=== PATIENT | male | born 1950 ===

== ENCOUNTER 2018-05-04 21:40 | Inpatient (IN) | payer OTHER ==
[~2018-05-04] VITALS: Ht 167.6 cm; Wt 69.9 kg
[2018-05-04] MEDS ORDERED: SODIUM CHLORIDE FLUSH 10ML SYR IVF ONE (22:00)
--- NOTE | 2018-05-04 22:04 | NUR ---
SEE TRIAGE NOTE. PT REPORTS SX ONSET APPROX 2044, ALL SX SAME WITH PREVIOUS KS-NO CP. PT STATES NAUSEA AND DIZZINESS GONE AT THIS TIME. PT STILL HAS SLIGHT SOB BUT ABLE TO SPEAK FULL SENTENCES, RA SAT 100%. PT PLACED ON HEART MONITOR, BP CUFF, PULSE OX. CALL LIGHT WITHIN REACH, WARM BLANKET PROVIDED. FAMILY AT BS. REPORT TO EARL WOODALL.
[2018-05-04 22:06] LABS: BASOPHILS # (AUTO) 0.02 x10^3/uL (0-0.1); BASOPHILS % (AUTO) 0 % (0-1); EOSINOPHILS # (AUTO) 0.17 x10^3/uL (0-0.4); EOSINOPHILS % (AUTO) 2 % (1-7); LYMPHOCYTES # (AUTO) 2.63 x10^3/uL (1-3.4); LYMPHOCYTES % (AUTO) 26 % (22-44); MD NO; MEAN CORPUSCULAR HEMOGLOBIN 30.3 pg (27.5-34.5); MEAN CORPUSCULAR HGB CONC 33.9 g/dL (33.2-36.2); MEAN CORPUSCULAR VOLUME 89.3 fL (81-97); MEAN PLATELET VOLUME 8.2 fL (7.4-10.4); MONOCYTES # (AUTO) 0.78 x10^3/uL (0.2-0.8); MONOCYTES % (AUTO) 8 % (2-9); NEUTROPHILS # (AUTO) 6.56 x10^3/uL (1.8-6.8); NEUTROPHILS % (AUTO) 65 % (42-75); PLATELET COUNT 264 x10^3/uL (130-400); RED BLOOD COUNT 4.62 x10^6/uL (4.38-5.82); RED CELL DISTRIBUTION WIDTH 12.9 % (9.4-14.8)
--- NOTE | 2018-05-04 22:06 | NUR ---
FIRST PT CONTACT, PT REPORTS THAT HE ARRIVED IN [place] T HIS AM APPROX 11AM TO SEE THE [employer] [facility] AT [facility] PT BEGAN TO FEEL SOB, DIZZY AND BECAME DIAPHORETIC, HAD NO CHEST PAIN, STATES THAT THIS FEELING INCREASED OVER 10 MINUTES, TOOK A NTG WHICH DID NOT RELIEVE THE PAIN, PT BELIEVES THE BOTTLE IS A NEW ONE, 911 CALLED. REPORTS THAT HE IS FEELING BETTER AT THIS TIME, STATES THAT HE HAS HAD 5 HEART ATTACKS AND THE SYMPTOMS HE HAD THIS EVENING WERE EXACTLY THE SAME, PACED ON THE MONITOR, FAMILY AT BEDSIDE, EXCEPTIONALLY NICE PEOPLE.
[2018-05-04 22:15] LABS: INTERNATIONAL NORMALIZED RATIO 1.04 (0.93-1.1); PROTHROMBIN TIME 10.9 Seconds (9.6-11.5)
[2018-05-04 22:16] LABS: ALANINE AMINOTRANSFERASE 22 U/L (12-78); ALBUMIN 3.7 g/dL (3.4-5.0); ANION GAP 5 mmol/L (5-15); CALCIUM 8.8 mg/dL (8.5-10.1); CHLORIDE 108 mmol/L (98-107); CREATININE 1.11 mg/dL (0.7-1.3)
[2018-05-04] MEDS ORDERED: LOSA50TA14 PO (22:18)
[2018-05-04] MEDS ORDERED: ASPI-515 PO (22:18)
[2018-05-04] MEDS ORDERED: CARV25TA12 PO (22:18)
[2018-05-04] MEDS ORDERED: PANT20TA2 PO (22:18)
[2018-05-04] MEDS ORDERED: NITR0.4T28 SL (22:18)
[2018-05-04] MEDS ORDERED: METF500T17 PO (22:18)
[2018-05-04] MEDS ORDERED: RIVA10TA2 PO (22:18)
[2018-05-04] MEDS ORDERED: PANT20TA3 PO (22:18)
[2018-05-04] MEDS ORDERED: LOVA10TA PO (22:18)
[2018-05-04] MEDS ORDERED: LATANOPROST (22:18)
[2018-05-04 22:20] LABS: ALKALINE PHOSPHATASE 120 U/L (45-117); BILIRUBIN,TOTAL 0.4 mg/dL (0.2-1.0); TOTAL PROTEIN 7.8 g/dL (6.4-8.2); TROPONIN I < 0.015 ng/mL (0.000-0.045)
--- NOTE | 2018-05-04 23:04 | NUR ---
RESTING QUIETLY, FAMILY REMAINS AT BEDSIDE, PT NAD AND HAS NO COMPLAINTS CURRENTLY, PT IS TO BE ADMITTED, AWAIT HOSPITALIST.
--- NOTE | 2018-05-04 23:13 | NUR ---
DR PADILLA TO BEDSIDE
[2018-05-04] MEDS ORDERED: OXYcodone IR 5MG TABLET PO PRN (23:30)
[2018-05-04] MEDS ORDERED: LOVASTATIN 10 MG TABLET PO SCH (23:30)
[2018-05-04] MEDS ORDERED: HEPARIN 5,000 UNITS/ML, 1ML SQ SCH (23:30)
[2018-05-04] MEDS ORDERED: ONDANSETRON ODT 4 MG PO PRN (23:30)
[2018-05-04] MEDS ORDERED: ONDANSETRON 2MG/ML, 2ML IVPush PRN (23:30)
[2018-05-04] MEDS ORDERED: PROMETHAZINE 25 MG/ML, 1ML IM PRN (23:30)
[2018-05-04] MEDS ORDERED: morphine SULFATE 10 MG/ML, 1ML IVPush PRN (23:30)
[2018-05-04] MEDS ORDERED: LABETALOL 5 MG/ML SYRINGE IVPush PRN (23:30)
[2018-05-04] MEDS ORDERED: BISACODYL 10 MG SUPP PR PRN (23:30)
[2018-05-04] MEDS ORDERED: ACETAMINOPHEN 325 MG TABLET PO PRN (23:30)
[2018-05-04] MEDS ORDERED: POLYETHYLENE GLYCOL 17 GM PACKET PO PRN (23:30)
[2018-05-04] MEDS ORDERED: NITROGLYCERIN 0.4 MG BOTTLE (25 TABS) SL PRN (23:30)
[2018-05-04] MEDS ORDERED: hydrALAzine 20 MG/ML, 1ML IVPush PRN (23:30)
[2018-05-04] MEDS ORDERED: DOCUSATE 100 MG CAPSULE PO PRN (23:30)
[2018-05-04] MEDS ORDERED: HEPARIN 5,000 UNITS/ML, 1ML ONE (23:32)
--- NOTE | 2018-05-04 23:39 | NUR ---
[place] ORDERRED FROM PHARMACY
[2018-05-04 23:47] LABS: FREE T4 (FREE THYROXINE) 1.13 ng/dL (0.76-1.46); THYROID STIMULATING HORMONE 1.43 mIU/L (0.358-3.740)
[2018-05-04 23:54] LABS: HEMOGLOBIN A1C 7.3 % (4.2-6.3)
[2018-05-05] MEDS ORDERED: LATANOPROST OPHTH 0.005%, 2.5ML EACHEYE SCH
[2018-05-05 00:40] VITALS: BP 122/79
[2018-05-05 01:30] LABS: TROPONIN I < 0.015 ng/mL (0.000-0.045)
[2018-05-05] MEDS: SODIUM CHLORIDE 0.9% 1,000 ML IV SCH ×2 (01:53→11:30)
[2018-05-05] MEDS ORDERED: RIVAROXABAN MC SCH (02:30)
[2018-05-05] MEDS ORDERED: ASPIRIN MC SCH (02:30)
[2018-05-05] MEDS ORDERED: HEPARIN MC SCH (02:30)
[2018-05-05 05:36] LABS: BASOPHILS # (AUTO) 0.03 x10^3/uL (0-0.1); BASOPHILS % (AUTO) 0 % (0-1); EOSINOPHILS # (AUTO) 0.13 x10^3/uL (0-0.4); EOSINOPHILS % (AUTO) 2 % (1-7); LYMPHOCYTES # (AUTO) 2.31 x10^3/uL (1-3.4); LYMPHOCYTES % (AUTO) 26 % (22-44); MD NO; MEAN CORPUSCULAR HEMOGLOBIN 30.2 pg (27.5-34.5); MEAN CORPUSCULAR HGB CONC 33.8 g/dL (33.2-36.2); MEAN CORPUSCULAR VOLUME 89.5 fL (81-97); MEAN PLATELET VOLUME 8.3 fL (7.4-10.4); MONOCYTES # (AUTO) 0.75 x10^3/uL (0.2-0.8); MONOCYTES % (AUTO) 8 % (2-9); NEUTROPHILS # (AUTO) 5.83 x10^3/uL (1.8-6.8); NEUTROPHILS % (AUTO) 64 % (42-75); PLATELET COUNT 225 x10^3/uL (130-400); RED CELL DISTRIBUTION WIDTH 13.4 % (9.4-14.8)
[2018-05-05 05:41] LABS: ALBUMIN 3.4 g/dL (3.4-5.0); ANION GAP 4 mmol/L (5-15); CALCIUM 8.5 mg/dL (8.5-10.1); CHLORIDE 108 mmol/L (98-107)
[2018-05-05 05:49] LABS: ALANINE AMINOTRANSFERASE 20 U/L (12-78); ALKALINE PHOSPHATASE 108 U/L (45-117); BILIRUBIN,TOTAL 0.3 mg/dL (0.2-1.0); CHOL/HDL RATIO 3.4; CHOLESTEROL, TOTAL 111 mg/dL (140-239); CREATININE 1.09 mg/dL (0.7-1.3); HDL CHOL % 30 % (26-37); HDL CHOLESTEROL (DIRECT) 33 mg/dL (40-60); LDL CHOLESTEROL,CALCULATED 63 mg/dL (54-169); LDL/HDL RATIO 1.9 (0.5-3.0); TOTAL PROTEIN 7.2 g/dL (6.4-8.2); TRIGLYCERIDES 74 mg/dL (50-200); TROPONIN I < 0.015 ng/mL (0.000-0.045); VLDL CHOLESTEROL 15 mg/dL (0-25)
[2018-05-05] MEDS ORDERED: PANTOPRAZOLE 20MG TABLET PO SCH (06:00)
[2018-05-05] MEDS ORDERED: ASPIRIN 325 MG TABLET EC PO SCH (06:00)
[2018-05-05 06:45] VITALS: BP 157/79
[2018-05-05] MEDS: INSULIN LISPRO 100 UNITS/ML, PEN SQ-INSULIN SCH ×2 (07:00→11:00)
[2018-05-05] MEDS ORDERED: RIVAROXABAN 10 MG TABLET PO SCH (09:00)
[2018-05-05] MEDS ORDERED: PANTOPRAZOLE SODIUM 20 MG PO SCH (09:00)
[2018-05-05] MEDS ORDERED: LOSARTAN 50MG TABLET PO SCH (09:00)
[2018-05-05] MEDS ORDERED: HEPARIN 5,000 UNITS/ML, 1ML SQ SCH (11:00)
[2018-05-05] MEDS ORDERED: ASPI81TA45 PO (11:45)
[2018-05-05] MEDS ORDERED: ROSU10TA PO (11:45)
[2018-05-05 12:10] VITALS: BP 169/87
[2018-05-05] MEDS ORDERED: CARVEDILOL 25 MG TABLET PO SCH (23:28)
== END 2018-05-05 13:00 | disposition home or self-care (01) | DRG 313 ==
LOC: ED 23:11 → EDIP 23:21 → 5SO 05-05 00:33
PROVIDERS: ADMIT Internal Medicine; ATTEND Internal Medicine
DX: R07.89 Other chest pain (principal); D68.59 Other primary thrombophilia; E11.9 Type 2 diabetes mellitus without complications; E78.5 Hyperlipidemia, unspecified; I10 Essential (primary) hypertension; I25.10 Atherosclerotic heart disease of native coronary artery without angina pectoris; I25.2 Old myocardial infarction; I44.7 Left bundle-branch block, unspecified; K21.9 Gastro-esophageal reflux disease without esophagitis; Z85.46 Personal history of malignant neoplasm of prostate; Z95.0 Presence of cardiac pacemaker; Z95.1 Presence of aortocoronary bypass graft; Z95.5 Presence of coronary angioplasty implant and graft
CPT/HCPCS: 36415; 71045; 80053; 80061; 83036; 83735; 83880; 84439; 84443; 84484; 85025; 85610; 85730; 93005; 96372; 99285; J1644; J7030